=== PATIENT | female | born 1945 | race Asian ===

== ENCOUNTER 2020-04-29 16:26 | Emergency (ER) | payer BC, MEDICAID ==
[~2020-04-29] VITALS: Ht 154.9 cm; Wt 63.5 kg
[2020-04-29 16:56] VITALS: BP 133/85
[2020-04-29] MEDS ORDERED: ACETAMINOPHEN 325 MG TAB PO ONE (19:00)
== END 2020-04-29 19:20 | disposition home or self-care (01) ==
LOC: ER 16:26
DX: L73.9 Follicular disorder, unspecified (principal); R23.8 Other skin changes; I10 Essential (primary) hypertension

== ENCOUNTER → 2021-02-05 | Outpatient (CLI) | payer BC, MEDICAID | END | disposition home or self-care (01) | LOC: LAB 13:18 | PROVIDERS: ATTEND Nurse Practitioner Family | DX: Z20.822 Contact with and (suspected) exposure to COVID-19 (principal) | CPT/HCPCS: 36415; 87426 ==